=== PATIENT | male | born 1995 | race Caucasian/White ===

== ENCOUNTER 2017-09-16 23:38 | Emergency (ER) | payer BC ==
[2017-09-16 23:43] VITALS: BP 145/86; PULSE 109; RESP 16; TEMP 98.2; O2SAT 96
--- NOTE | 2017-09-17 00:01 | EDPHY ---
H & P Stated Complaint: R KNEE INJURY/SOCCER Time Seen by Provider: 09/16/17 23:44 HPI/ROS: Chief Complaint: Right knee injury HPI: 22-year-old male was playing soccer this evening when he injured his right knee. Patient states he planted his right leg and attempted to take a shot. He felt a pop in the lateral aspect his knee in the sudden onset of pain. He has been able to ambulate but with discomfort since then. Does not have a history of prior knee injuries. No other complaints at this time. ROS: 10 point Review of Systems is negative except as noted in the HPI. Physical Exam: General: Awake, alert, no acute distress Right leg: Hip is nontender, full range of motion of pain. Right knee: He has tenderness along the lateral collateral ligament. He has full flexion and extension without pain. There is no anterior drawer sign. He does not have pain with loading of the lateral or medial meniscus. There is no pain with loading of the medial collateral ligament. He has significant pain with loading of the lateral collateral ligament. Distally has normal perfusion and sensation. Skin: No rash - Personal History Current Tetanus Diphtheria and Acellular Pertussis (TDAP): Yes - Medical/Surgical History Hx Asthma: Yes Hx Chronic Respiratory Disease: No Hx Diabetes: No Hx Cardiac Disease: No Hx Renal Disease: No Hx Cirrhosis: No Hx Alcoholism: No Hx HIV/AIDS: No Hx Splenectomy or Spleen Trauma: No Other PMH: L GROIN SX, ASTHMA - Social History Smoking Status: Never smoked Constitutional: Initial Vital Signs Temperature (C) 36.8 C 09/16/17 23:41 Heart Rate 109 H 09/16/17 23:41 Respiratory Rate 16 09/16/17 23:41 Blood Pressure 145/86 H 09/16/17 23:41 O2 Sat (%) 96 09/16/17 23:41 O2 Delivery Mode Room Air Allergies/Adverse Reactions: No Known Allergies Allergy (Unverified 09/16/17 23:41) Home Medications: Medication Instructions Recorded Wellbutrin Sr 09/16/17 Medical Decision Making - Diagnostics Imaging Results: Imaging Impressions Knee X-Ray 09/16/17 23:53 Impression: 1. No acute osseous abnormality seen right knee. 2. Small effusion suprapatellar bursa. If symptoms persist, consider MRI of the knee at some point to evaluate for possible underlying meniscal or ligamentous type injury. Imaging: I viewed and interpreted images myself ED Course/Re-evaluation: X-ray negative. Symptoms consistent with a lateral collateral ligament strain. Patient has been placed in an [place] wrap and given crutches. Will give him ibuprofen here. He will follow up with [facility] in 3-4 days if symptoms are not improving. Departure - Departure Disposition: Home, Routine, Self-Care Clinical Impression: Knee sprain Condition: Good Instructions: Knee Sprain (ED), R.I.C.E. Treatment (ED), Crutch Instructions ( ED) Additional Instructions: May take ibuprofen, 600 mg 3 times a day. You may also take acetaminophen, 1000 mg every 6 hr. Do not exceed 3000 mg in 24 hr. Follow up at [facility] in 3-4 days if symptoms are not improving. Referrals: SERGIO Argueta,. [Clinic] - As per Instructions
== END 2017-09-17 00:22 | disposition home or self-care (01) ==
DX: S83.91XA Sprain of unspecified site of right knee, initial encounter (principal); J45.909 Unspecified asthma, uncomplicated; X58.XXXA Exposure to other specified factors, initial encounter; Y99.8 Other external cause status; Y93.66 Activity, soccer